=== PATIENT | female | born 1975 | race Caucasian/White ===

== ENCOUNTER 2020-04-09 05:45 | Emergency (ER) | payer BC ==
[2020-04-09 06:04] VITALS: BP 160/107; PULSE 77; RESP 18; TEMP 99
--- NOTE | 2020-04-09 06:22 | ED ---
Skin/Abscess/FB HPI - General Chief complaint: Skin/Abscess/Foreign Body Stated complaint: abscess Time Seen by Provider: 04/09/20 06:07 Source: patient, RN notes reviewed Mode of arrival: ambulatory Limitations: no limitations - History of Present Illness Initial comments: 44-year-old female presents emergency Department chief complaint of abscess on her tailbone region. Patient states it started last surgery was seen [facility] Tuesday was started on Bactrim. Patient states that the drainage started today in which it ruptured (. She states the pain is now resolved. Patient states that she had no fevers or chills. She states that there is a large amount of continuous drainage. - Related Data Previous Rx's Medication Instructions Recorded Cephalexin [Keflex] 500 mg PO Q6HR #28 cap 04/09/20 Allergies Allergy/AdvReac Type Severity Reaction Status Date / Time No Known Allergies Allergy Verified 04/09/20 06:04 Review of Systems ROS Statement: Those systems with pertinent positive or pertinent negative responses have been documented in the HPI. ROS Other: All systems not noted in ROS Statement are negative. Past Medical History Past Medical History: Hypertension History of Any Multi-Drug Resistant Organisms: None Reported Past Surgical History: Orthopedic Surgery Past Psychological History: Anxiety, Depression Smoking Status: Never smoker Past Alcohol Use History: None Reported Past Drug Use History: None Reported General Exam Limitations: no limitations General appearance: alert, in no apparent distress Head exam: Present: atraumatic, normocephalic, normal inspection Respiratory exam: Present: normal lung sounds bilaterally. Absent: respiratory distress, wheezes, rales, rhonchi, stridor Cardiovascular Exam: Present: regular rate, normal rhythm, normal heart sounds. Absent: systolic murmur, diastolic murmur, rubs, gallop, clicks GI/Abdominal exam: Present: soft, normal bowel sounds. Absent: distended, tenderness, guarding, rebound, rigid Skin exam: Present: warm, dry, intact, normal color, other (There is a open, large purulent drainage abscess at the cleft of buttocks, area is minimally tender). Absent: rash Course Vital Signs 04/09/20 06:02 Temperature 99 F Pulse Rate 77 Respiratory 18 Rate Blood Pressure 160/107 O2 Sat by Pulse 97 Oximetry Medical Decision Making - Medical Decision Making Patient will continue antibiotics , encouraged to do frequent warm soaks. Patient has appointment tomorrow with her PCP and return parameters were discussed. Disposition Clinical Impression: Pilonidal cyst with abscess Disposition: HOME SELF-CARE Condition: Stable Instructions (If sedation given, give patient instructions): Abscess (ED) Additional Instructions: Please return to the Emergency Department if symptoms worsen or any other concerns. Prescriptions: Cephalexin [Keflex] 500 mg PO Q6HR #28 cap Is patient prescribed a controlled substance at d/c from ED?: No Referrals: Reg Freitas MD [Primary Care Provider] - 1-2 days Time of Disposition: 06:21
== END 2020-04-09 06:36 | disposition home or self-care (01) ==
LOC: EC 05:45
DX: L05.01 Pilonidal cyst with abscess (principal); I10 Essential (primary) hypertension
CPT/HCPCS: 99283

== ENCOUNTER → 2020-12-18 | Outpatient (CLI) | payer BC ==
--- NOTE | 2020-12-18 21:06 | CONS ---
CONSULTATION DATE OF SERVICE: 12/18/2020 25-year-old lady has been evaluated in the sleep center for possible obstructive sleep apnea-hypopnea syndrome and significant excessive daytime sleepiness. HISTORY OF PRESENT ILLNESS/SLEEP-WAKE EVALUATION: Patient's usual sleep schedule on weekdays from 9 or 10 p.m. until 4:30 a.m., on weekends from 11 p.m. until 11:00 a.m. No problems with falling asleep, although she has TV set in bedroom. She sleeps on the side position usually. She snores and wakes up from sleep 2 times with 2 episodes of nocturia. Positive history of snoring and awakenings with episodes of choking. In the morning, the patient wakes up tired, falling asleep during the day. Has problems with managing, namely irritability. [place] Sleepiness Scale significantly increased to 17. The patient takes at least 2 periods of naps during the day. No history of vivid dreams during naps and no history of hypnagogic hallucinations, sleep paralysis or cataplexy. PAST MEDICAL HISTORY: Positive for depression, hypertension, sinus problems, acid reflux. PAST SURGICAL HISTORY: Bilateral surgery for carpal tunnel syndrome. MEDICATIONS: Sertraline, bisoprolol. SOCIAL HISTORY: Negative for smoking or using alcohol. FAMILY HISTORY: Hypertension. REVIEW OF SYSTEMS: Awakenings from sleep, sleepiness during the day. PHYSICAL EXAMINATION: lady without distress BP 164/109. Patient did not take her medications for the blood pressure today, HR 83, RR 15, height 5 feet 3 inches, weight 240.8, body mass index 42.5, temperature 97, oxygen saturation at room air 97%. Oropharynx, extremely low position of soft palate. Mallampati IV. NECK: Wide, 16-1/2 inches in circumference. HEENT: PERRLA, EOMI, evaluation of oropharynx showed tongue protrudes midline. NECK: Supple, no JVD. Thyroid is not palpable. LUNGS: Clear to percussion and to auscultation. Good air exchange. No wheezing or rhonchi. HEART: S1, S2 regular. No murmurs, gallops, or rubs. ABDOMEN: Soft and nontender. Bowel sounds are present. No organomegaly appreciated. EXTREMITIES: No clubbing or cyanosis. MICA SPREADER: Awake, alert, and oriented X3. Cranial nerves 2 to 7 intact. There is no fasciculation or atrophy. noted. No focal deficits observed. IMPRESSION: 1. Snoring, awakenings from sleep with choking and nocturia, extremely low position of the soft palate, Mallampati 4, wide neck 16 1/2 inches in circumference, sleepiness, obstructive sleep apnea-hypopnea syndrome. 2. Significant excessive daytime sleepiness. Patient take 2 naps a day. [place] Sleepiness Scale is very high range of 17. Dictate necessity to include hypersomnia index and narcolepsy in differential diagnosis. No history of cataplexy. 3. Hypertension. 4. Depression. 5. Obesity. BMI 42.5. 6. Sinus problems. 7. Acid reflux. 8. Status post bilateral surgery for carpal tunnel syndrome. PLAN: 1. Home sleep apnea test for evaluation of patient's breathing during sleep. 2. CPAP/BiPAP titration if sleep study confirms obstructive sleep apnea-hypopnea syndrome. 3. Preferable position during sleep on the side. 4. No driving if patient feels any sleepiness. 5. I will see patient for follow up visit to explain results of testing and following plan. Thank you very much for referring this patient for consultation. Sincerely, Brian Duke MD, PhD, FAASM Diplomat of [employer] Sleep Medicine [employer] Biomedical Technician of [facility] [place] MMODL / MARIBELLN: [id number] /
== END ==
LOC: SLEEP 16:17
PROVIDERS: ATTEND Internal Medicine
DX: G47.33 Obstructive sleep apnea (adult) (pediatric) (principal); I10 Essential (primary) hypertension; F32.9 Major depressive disorder, single episode, unspecified; E66.9 Obesity, unspecified; J34.9 Unspecified disorder of nose and nasal sinuses; K21.9 Gastro-esophageal reflux disease without esophagitis; Z98.890 Other specified postprocedural states; Z68.41 Body mass index [BMI] 40.0-44.9, adult
CPT/HCPCS: 99211

== ENCOUNTER 2021-04-12 14:38 | Emergency (ER) | payer BC ==
[2021-04-12 14:56] VITALS: TEMP 99
[2021-04-12] MEDS ORDERED: LIDOCAINE 1% INJ 10MG/ML (20 ML MDV) SQ ONE (17:19)
[2021-04-12] MEDS ORDERED: LIDOCAINE-PRILOCAINE 2.5-2.5% CREAM 5 GM TUBE TOPICAL STA (17:19)
[2021-04-12] MEDS ORDERED: DIPH,PERTUS(ACELL)TETVAC-LF 0.5 ML VIAL IM ONE (17:20)
--- NOTE | 2021-04-12 17:27 | ED ---
General Adult HPI - General Chief complaint: Skin/Abscess/Foreign Body Stated complaint: LT LEG SWELLING Time Seen by Provider: 04/12/21 17:15 Source: patient, RN notes reviewed Mode of arrival: ambulatory Limitations: no limitations - History of Present Illness Initial comments: 45-year-old female, alert and oriented 4, presents to the emergency room with complaints of a left inner leg abscess and redness since . Patient states that she was seen at urgent care yesterday and they prescribed her Bactrim and Naprosyn. She states that she has had 2 doses and redness is continuing to spread and becoming more painful and swollen. Patient states she has a history of hypertension. She is a nonsmoker. She has had a low-grade fever in the emergency room. She denies any nausea vomiting or diarrhea. -: days(s) (4) Location: buttocks, left Severity scale (1-10): 7 Quality: sharp Consistency: constant Improves with: none Worsens with: none Associated Symptoms: denies other symptoms Treatments Prior to Arrival: other (bactrim naproxen) - Related Data Home Medications Medication Instructions Recorded Confirmed Bisoprolol-Hctz 10-6.25 mg [Ziac 1 tab PO DAILY 04/12/21 04/12/21 10-6.25 MG] Ibuprofen [Advil] 400 mg PO DAILY PRN 04/12/21 04/12/21 Phenylephrine HCl/Acetaminophn 2 tab PO DAILY PRN 04/12/21 04/12/21 [Tylenol Sinus Headache Caplet] Sertraline [Zoloft] 50 mg PO DAILY 04/12/21 04/12/21 Sulfamethox-Tmp 800-160Mg [Bactrim 1 tab PO Q12H 04/12/21 04/12/21 DS 800-160 mg] Allergies Allergy/AdvReac Type Severity Reaction Status Date / Time No Known Allergies Allergy Verified 04/12/21 18:02 Review of Systems ROS Statement: Those systems with pertinent positive or pertinent negative responses have been documented in the HPI. ROS Other: All systems not noted in ROS Statement are negative. Past Medical History Past Medical History: Hypertension History of Any Multi-Drug Resistant Organisms: None Reported Past Surgical History: Orthopedic Surgery Past Psychological History: Anxiety, Depression Smoking Status: Never smoker Past Alcohol Use History: None Reported Past Drug Use History: None Reported General Exam Limitations: no limitations General appearance: alert, in no apparent distress Head exam: Present: atraumatic, normocephalic, normal inspection Eye exam: Present: normal appearance, EOMI. Absent: scleral icterus, conjunctival injection, periorbital swelling Neck exam: Present: normal inspection, full ROM. Absent: tenderness, meningismus Respiratory exam: Present: normal lung sounds bilaterally. Absent: respiratory distress, wheezes, rales, rhonchi, stridor, chest wall tenderness, accessory muscle use, decreased breath sounds Cardiovascular Exam: Present: normal rhythm, tachycardia, normal heart sounds. Absent: systolic murmur, diastolic murmur, rubs, gallop, clicks GI/Abdominal exam: Present: soft Extremities exam: Present: normal inspection, full ROM, normal capillary refill. Absent: tenderness, pedal edema, joint swelling, calf tenderness Back exam: Present: normal inspection, full ROM. Absent: tenderness, CVA tenderness (R), CVA tenderness (L), rash noted Neurological exam: Present: alert, oriented X3 Psychiatric exam: Present: normal affect, normal mood Skin exam: Present: warm, dry, erythema (Left inner thigh area of induration approximately 10cm x 18cm) Course Vital Signs 04/12/21 04/12/21 14:54 18:59 Temperature 99 F Pulse Rate 100 99 Respiratory 16 18 Rate Blood Pressure 135/70 124/83 O2 Sat by Pulse 97 99 Oximetry - Reevaluation(s) Reevaluation #1: 04/12/21 17:41 Patient was offered a [place] for pain and declined at this time. Time: 17:41 Procedures - Incision & Drainage Consent Obtained: verbal consent Site: lower extremity (inner thigh) Anesthetic Used: lidocaine 1% Amount (mLs): 3 I&D Cleaning Method: Chloroprep Sterile Field Used?: Yes Scalpel Used: #11 Needle Aspiration Performed?: No Irrigation Performed?: No I&D Drainage Obtained: Pus, Blood Culture Obtained?: Yes Patient Tolerated Procedure: well Medical Decision Making - Medical Decision Making 44-year-old female patient presents to the emergency room with complaints of left inner thigh abscess. Patient was seen at urgent care yesterday and put on Bactrim. She has not had any fevers, nausea vomiting or diarrhea. The abscess was indurated with an area of redness 10 cm x 18 cm. The abscess was lanced in the emergency room today. There was purulent drainage and a culture was sent. She was directed to use sitz baths and continue Bactrim as previously prescribed. Follow-up with her primary care doctor tomorrow. Patient was also directed to return to the emergency room with a new worsening symptoms including increased pain, fevers, nausea vomiting. She is agreeable to this plan of care. Case was discussed with Dr. Yates. Disposition Clinical Impression: Cellulitis, Abscess Disposition: HOME SELF-CARE Condition: Good Instructions (If sedation given, give patient instructions): Cellulitis (ED), Sitz Bath (DC), Abscess Incision and Drainage (DC) Additional Instructions: Continue taking the antibiotics and the Naprosyn as previously prescribed. Take sitz baths as directed. Follow-up with the primary care doctor next week. Return to the emergency room with any new or worsening symptoms including increased redness, pain or fevers. Is patient prescribed a controlled substance at d/c from ED?: No Referrals: Reg Freitas MD [Primary Care Provider] - 1-2 days
[2021-04-12 19:00] VITALS: BP 124/83; PULSE 99; RESP 18
== END 2021-04-12 19:03 | disposition home or self-care (01) ==
LOC: EC 14:38
DX: L02.416 Cutaneous abscess of left lower limb (principal); I10 Essential (primary) hypertension; F41.9 Anxiety disorder, unspecified; F32.A Depression, unspecified
CPT/HCPCS: 99283; 90471; 10060; 87070; 87205; 87077; 87186; 90715; J2001

== ENCOUNTER 2022-04-09 10:40 | Emergency (ER) | payer BC ==
[2022-04-09 10:51] VITALS: BP 156/75; PULSE 58; RESP 18; TEMP 97.7
--- NOTE | 2022-04-09 11:37 | ED ---
Skin/Abscess/FB HPI - General Chief complaint: Skin/Abscess/Foreign Body Stated complaint: absess Time Seen by Provider: 04/09/22 11:19 Source: patient, RN notes reviewed Mode of arrival: ambulatory - History of Present Illness Initial comments: Patient is a pleasant 46-year-old female presenting to the emergency room with complaints of a pimple-like lesion to the right upper inner thigh. She reports that the lesion just appear a few days ago however around this time last year she had developed a similar lesion which required hospitalization for MRSA and she wishes "to stay on top of" this lesion. She states that the area has become more irritated recently but she denies any drainage from the lesion any increase in redness, fevers or chills. She denies any other complaints or concerns at this time. She has a past medical history for hypertension. - Related Data Home Medications Medication Instructions Recorded Confirmed Bisoprolol-Hctz 10-6.25 mg [Ziac 1 tab PO DAILY 04/12/21 04/12/21 10-6.25 MG] Ibuprofen [Advil] 400 mg PO DAILY PRN 04/12/21 04/12/21 Phenylephrine HCl/Acetaminophn 2 tab PO DAILY PRN 04/12/21 04/12/21 [Tylenol Sinus Headache Caplet] Sertraline [Zoloft] 50 mg PO DAILY 04/12/21 04/12/21 Sulfamethox-Tmp 800-160Mg [Bactrim 1 tab PO Q12H 04/12/21 04/12/21 DS 800-160 mg] Previous Rx's Medication Instructions Recorded clindamycin HCL [Cleocin] 300 mg PO Q8H 10 Days #30 cap 04/09/22 Allergies Allergy/AdvReac Type Severity Reaction Status Date / Time No Known Allergies Allergy Verified 04/09/22 10:51 Review of Systems ROS Statement: Those systems with pertinent positive or pertinent negative responses have been documented in the HPI. ROS Other: All systems not noted in ROS Statement are negative. Past Medical History Past Medical History: Hypertension History of Any Multi-Drug Resistant Organisms: MRSA Date of last positivie culture/infection: 04/12/21 MDRO Source:: THIGH MRSA Past Surgical History: Orthopedic Surgery Past Psychological History: Anxiety, Depression Smoking Status: Never smoker Past Alcohol Use History: None Reported Past Drug Use History: None Reported General Exam General appearance: alert, in no apparent distress Head exam: Present: atraumatic, normocephalic, normal inspection Eye exam: Present: normal appearance, PERRL, EOMI. Absent: scleral icterus, conjunctival injection, periorbital swelling ENT exam: Present: normal exam, mucous membranes moist Neck exam: Present: normal inspection. Absent: tenderness, lymphadenopathy Respiratory exam: Present: normal lung sounds bilaterally. Absent: respiratory distress, wheezes, rales, rhonchi, stridor Cardiovascular Exam: Present: regular rate, normal rhythm, normal heart sounds. Absent: systolic murmur, diastolic murmur, rubs, gallop, clicks GI/Abdominal exam: Present: soft, normal bowel sounds. Absent: distended, tenderness, guarding, rebound, rigid Rectal exam: Present: deferred Extremities exam: Present: normal inspection. Absent: pedal edema, joint swelling Back exam: Present: normal inspection, full ROM Neurological exam: Present: alert, oriented X3, CN II-XII intact Psychiatric exam: Present: normal affect, normal mood Skin exam: Present: other (Right inner thighdistal to groin fold discolored skin lesion with tenderness no focal abscess noted no surrounding induration and no drainage. ) Course Vital Signs 04/09/22 10:47 Temperature 97.7 F Pulse Rate 58 L Respiratory 18 Rate Blood Pressure 156/75 O2 Sat by Pulse 100 Oximetry Medical Decision Making - Medical Decision Making 46-year-old female presenting to the emergency room with concerns regarding pimple-like skin lesion with a history of MRSA. Exam reveals tissue discoloration and tenderness without induration or discernible abscess. No drainage. Hemodynamically stable without any evidence of systemic infection. No indication for diagnostic imaging or laboratory studies. No indication for incision and drainage as there is no evidence of abscess or significant cellulitis on exam. No indication for IV antibiotics, analgesics, or an tipyretics. Suspect early infection consequently will treat with oral clindamycin regimen in the setting of previous MRSA history. Strict return parameters regarding worsening of infection reviewed with patient. Will discharge home in stable condition. Case discussed with Dr. Cornejo. Disposition Clinical Impression: Dermatitis, Personal history of Methicillin resistant Staphylococcus aureus infection Disposition: HOME SELF-CARE Condition: Stable Instructions (If sedation given, give patient instructions): Abscess (ED), Dermatitis (ED) Additional Instructions: Complete course of antibiotic as prescribed. Please monitor for symptoms of abscess and worsening infection. Please follow-up with your primary care provider. Please return to the Emergency Department if symptoms worsen or any other concerns. Prescriptions: clindamycin HCL [Cleocin] 300 mg PO Q8H 10 Days #30 cap Is patient prescribed a controlled substance at d/c from ED?: No Referrals: Reg Freitas MD [Primary Care Provider] - 1-2 days Time of Disposition: 11:41
== END 2022-04-09 12:10 | disposition home or self-care (01) ==
LOC: EC 10:40
DX: L30.9 Dermatitis, unspecified (principal); Z86.14 Personal history of Methicillin resistant Staphylococcus aureus infection; I10 Essential (primary) hypertension; F41.9 Anxiety disorder, unspecified; F32.A Depression, unspecified; Z79.899 Other long term (current) drug therapy
CPT/HCPCS: 99282

== ENCOUNTER 2023-10-21 08:15 | Observation (INO) | payer BC ==
[2023-10-21 09:08] LABS: HCT 48.5 % (34.0-46.0); HGB 16.5 gm/dL (11.4-16.0); MCH 31.1 pg (25.0-35.0); MCHC 34.1 g/dL (31.0-37.0); MCV 91.1 fL (80.0-100.0); Mean Platelet Volume 7.3; Platelet Count 251 k/uL (150-450); RBC 5.32 m/uL (3.80-5.40); RDW 13.1 % (11.5-15.5); WBC 17.6 k/uL (3.8-10.6)
[2023-10-21] MEDS: SODIUM CHLORIDE 0.9% 1,000 ML IV STA ×2 (09:10→12:56)
[2023-10-21 09:30] LABS: ALT 42 U/L (4-34); African American GFR (CKD) 84 (>60 ml/min/1.73 sqM); Albumin 4.2 g/dL (3.5-5.0); Amylase 49 U/L (30-110); Anion Gap 10 mmol/L; Blood Urea Nitrogen 18 mg/dL (7-17); Calcium 9.4 mg/dL (8.4-10.2); Carbon Dioxide 12 mmol/L (22-30); Chloride 119 mmol/L (98-107); Glucose 90 mg/dL (74-99); Lipase 86 U/L (23-300); Non-African American GFR(CKD) 73 (>60 ml/min/1.73 sqM); Sodium 141 mmol/L (137-145); Total Bilirubin 0.8 mg/dL (0.2-1.3); Total Protein 7.5 g/dL (6.3-8.2)
[2023-10-21] MEDS: LOPERAMIDE 2 MG CAP PO STA (09:40)
--- NOTE | 2023-10-21 09:46 | ED ---
Nausea/Vomiting/Diarrhea HPI - General Chief complaint: Nausea/Vomiting/Diarrhea Stated complaint: Stomach pain, diarrhea Time Seen by Provider: 10/21/23 09:44 Source: patient, RN notes reviewed Mode of arrival: ambulatory Limitations: no limitations - History of Present Illness Initial comments: 48-year-old female presented to the ER with a chief complaint of diarrhea. She reports her diarrhea started on 10-15-2023. She states that has been persistent and she also is endorsing associated lower abdominal discomfort. She reports she is unable to twist or move without feeling like she is going to have an accident. She has tried Pepto-Bismol without relief. She denies any hematochezia or urinary complaints. She does report she has been having a decreased urine output. Denies any nausea, vomiting, chest pain, shortness of breath, fevers, chills, night sweats. - Related Data Home Medications Medication Instructions Recorded Confirmed Bisoprolol-Hctz 10-6.25 mg [Ziac 1 tab PO DAILY 04/12/21 10/21/23 10-6.25 MG] Venlafaxine HCl ER [Effexor Xr] 75 mg PO DAILY 10/21/23 10/21/23 Allergies Allergy/AdvReac Type Severity Reaction Status Date / Time No Known Allergies Allergy Verified 10/21/23 09:44 Review of Systems ROS Statement: Those systems with pertinent positive or pertinent negative responses have been documented in the HPI. ROS Other: All systems not noted in ROS Statement are negative. Past Medical History Past Medical History: Hypertension History of Any Multi-Drug Resistant Organisms: MRSA Date of last positivie culture/infection: 04/12/21 MDRO Source:: THIGH MRSA Past Surgical History: Orthopedic Surgery Past Psychological History: Anxiety, Depression Smoking Status: Never smoker Past Alcohol Use History: None Reported Past Drug Use History: None Reported General Exam Limitations: no limitations General appearance: alert, in no apparent distress Respiratory exam: Present: normal lung sounds bilaterally. Absent: respiratory distress, wheezes, rales, rhonchi, stridor Cardiovascular Exam: Present: regular rate, normal rhythm, normal heart sounds. Absent: systolic murmur, diastolic murmur, rubs, gallop, clicks GI/Abdominal exam: Present: soft, tenderness (Generalized), normal bowel sounds Neurological exam: Present: alert, oriented X3, CN II-XII intact Skin exam: Present: warm, dry, intact, normal color. Absent: rash Course Vital Signs 10/21/23 08:28 Temperature 98 F Pulse Rate 79 Respiratory 18 Rate Blood Pressure 139/89 O2 Sat by Pulse 98 Oximetry - Reevaluation(s) Reevaluation #1: 10/21/23 13:[address] Freitas who accepts medical admission. Medical Decision Making - Medical Decision Making Was pt. sent in by a medical professional or institution (, PA, CUTTING AND PRINTING MACHINE OPERATOR, urgent care, hospital, or longterm...) When possible be specific @ -No Did you speak to anyone other than the patient for history (EMS, parent, family, police, friend...)? What history was obtained from this source @ -No Did you review nursing and triage notes (agree or disagree)? Why? @ -I reviewed and agree with nursing and triage notes Were old charts reviewed (outside hosp., previous admission, EMS record, old EKG, old radiological studies, urgent care reports/EKG's, longterm records)? Report findings @ -No old charts were reviewed Differential Diagnosis (chest pain, altered mental status, abdominal pain women, abdominal pain men, vaginal bleeding, weakness, fever, dyspnea, syncope, headache, dizziness, GI bleed, back pain, seizure, CVA, palpatations, mental health, musculoskeletal)? @ -Differential Abdominal Pain Women:appendicitis, Cholecystitis, dive rticulosis, ischemic bowel, pancreatitis, hepatitis, UTI, gastroenteritis, AAA, incarcerated hernia, bowel obstruction, constipation, inflammatory bowel, hepatitis, peptic ulcer disease, splenic infarction, perforated viscus, vulvitis, ovarian torsion, PID, kidney stone, placenta abruption, this is not meant to be an all-inclusive list] EKG interpreted by me (3pts min.). @ -None X-rays interpreted by me (1pt min.). @ -None done CT interpreted by me (1pt min.). @ -CT abdomen pelvis significant for scattered prominent fluid-filled small bowel loops throughout the mid and lower abdomen along with liquid stool throughout the colon. Scattered mesenteric lymph nodes enlarged up to 11 mm. Normal appendix. Cholelithiasis. No evidence of acute cholecystitis. Hepatomegaly at 21.6 cm with severe hepatic steatosis. Patchy focal atelectasis versus early pneumonia. U/S interpreted by me (1pt. min.). @ -None done What testing was considered but not performed or refused? (CT, X-rays, U/S, la bs)? Why? @ -None What meds were considered but not given or refused? Why? @ -None Did you discuss the management of the patient with other professionals (professionals i.e. , PA, CUTTING AND PRINTING MACHINE OPERATOR, lab, RT, psych nurse, social science professor, sewer pipe layer, teacher, textile technical officer, housing case manager)? Give summary @ -Yes, case discussed with Dr. Freitas who accepts medical admission. Was smoking cessation discussed for >3mins.? @ -No Was critical care preformed (if so, how long)? @ -No Were there social determinants of health that impacted care today? How? (Homelessness, low income, unemployed, alcoholism, drug addiction, transportation, low edu. Level, literacy, decrease access to med. care, retirement, rehab)? @ -No Was there de-escalation of care discussed even if they declined (Discuss DNR or withdrawal of care, Hospice)? DNR status @ -No What co-morbidities impacted this encounter? (DM, HTN, Smoking, COPD, CAD, Cancer, CVA, ARF, Chemo, Hep., AIDS, mental health diagnosis, sleep apnea, morbid obesity)? @ -None Was patient admitted / discharged? Hospital course, mention meds given and route, prescriptions, significant lab abnormalities, going to OR and other pertinent info. @ -Admitted. 48 year old female presenting to the ER with a chief complaint of abdominal pain and diarrhea. History and physical exam completed. Vitals stable. Patient in no signs of acute distress and nontoxic appearing. Exam significant for generalized abdominal tenderness with hyperactive bowel sounds. Laboratory s tudies obtained significant for your WBC 17.6 with a left shift. Potassium 3.4, carbon dioxide 12, AST 42, ALT 42 (sample slightly hemolyzed). Urinalysis infectious with large leukocyte esterases with greater than 182 white blood cells. Urine sent for culture. CT abdomen pelvis performed due to leukocytosis and exam findings. CT abdomen pelvis significant for findings consistent with generalized enteritis. Normal appendix. Cholelithiasis no evidence of acute cholecystitis. Hepatomegaly at 21.6 cm with severe hepatic steatosis. Patchy focal atelectasis versus early pneumonia. Admission considered due leukocytosis, UTI and CT findings. Case discussed with Dr. Freitas, who accepts medical admission. Blood cultures obtained. Patient started on IV rocephin. Results discussed with nicholasnet, all questions answered. Patient agreeable for admission. Case discussed with ED attending, Dr. Lang. Undiagnosed new problem with uncertain prognosis? @ -No Drug Therapy requiring intensive monitoring for toxicity (Heparin, Nitro, Insulin, Cardizem)? @ -No Were any procedures done? @ -No Diagnosis/symptom? @ -UTI/leukocytosis/enteritis Acute, or Chronic, or Acute on Chronic? @ -Acute Uncomplicated (without systemic symptoms) or Complicated (systemic symptoms)? @ -Complicated Side effects of treatment? @ -No Exacerbation, Progression, or Severe Exacerbation? @ -No Poses a threat to life or bodily function? How? (Chest pain, USA, VT, pneumonia, PE, COPD, DKA, ARF, appy, cholecystitis, CVA, Diverticulitis, Homicidal, Suicidal, threat to staff... and all critical care pts) @ -Low likelihood - Lab Data Result diagrams: 10/21/23 09:04 10/21/23 09:04 Lab Results 10/21/23 10/21/23 10/21/23 Range/Units 08:45 09:04 09:04 WBC 17.6 H (3.8-10.6) k/uL RBC 5.32 (3.80-5.40) m/uL Hgb 16.5 H (11.4-16.0) gm/dL Hct 48.5 H (34.0-46.0) % MCV 91.1 (80.0-100.0) fL MCH 31.1 (25.0-35.0) pg MCHC 34.1 (31.0-37.0) g/dL RDW 13.1 (11.5-15.5) % Plt Count 251 (150-450) k/uL MPV 7.3 Neutrophils % (Manual) 73 % Lymphocytes % (Manual) 14 % Eosinophils % (Manual) 13 % Neutrophils # (Manual) 12.85 H (1.3-7.7) k/uL Lymphocytes # (Manual) 2.46 (1.0-4.8) k/uL Eosinophils # (Manual) 2.29 H (0-0.7) k/uL Nucleated RBCs 0 (0-0) /100 WBC Manual Slide Review Performed RBC Morphology Normal Sodium 141 (137-145) mmol/L Potassium 3.4 L (3.5-5.1) mmol/L Chloride 119 H (98-107) mmol/L Carbon Dioxide 12 L (22-30) mmol/L Anion Gap 10 mmol/L BUN 18 H (7-17) mg/dL Creatinine 0.95 (0.52-1.04) mg/dL Est GFR (CKD-EPI)AfAm 84 (>60 ml/min/1.73 sqM) Est GFR (CKD-EPI)NonAf 73 (>60 ml/min/1.73 sqM) Glucose 90 (74-99) mg/dL Plasma Lactic Acid Trev (0.7-2.0) mmol/L Calcium 9.4 (8.4-10.2) mg/dL Total Bilirubin 0.8 (0.2-1.3) mg/dL AST 42 H (14-36) U/L ALT 42 H (4-34) U/L Alkaline Phosphatase 81 (38-126) U/L Total Protein 7.5 (6.3-8.2) g/dL Albumin 4.2 (3.5-5.0) g/dL Amylase 49 (30-110) U/L Lipase 86 (23-300) U/L Urine Color Light Yellow Urine Appearance Turbid H (Clear) Urine pH 5.5 (5.0-8.0) Ur Specific [place] 1.022 (1.001-1.035) Urine Protein 1+ H (Negative) Urine Glucose (UA) Negative (Negative) Urine Ketones Negative (Negative) Urine Blood Small H (Negative) Urine Nitrite Negative (Negative) Urine Bilirubin Negative (Negative) Urine Urobilinogen <2.0 (<2.0) mg/dL Ur Leukocyte Esterase Large H (Negative) Urine RBC >182 H (0-5) /hpf Urine WBC >182 H (0-5) /hpf Ur Squamous Epith Cells 10 H (0-4) /hpf Urine Bacteria Few H (None) /hpf Urine Mucus Occasional H (None) /hpf 10/21/23 Range/Units 09:04 WBC (3.8-10.6) k/uL RBC (3.80-5.40) m/uL Hgb (11.4-16.0) gm/dL Hct (34.0-46.0) % MCV (80.0-100.0) fL MCH (25.0-35.0) pg MCHC (31.0-37.0) g/dL RDW (11.5-15.5) % Plt Count (150-450) k/uL MPV Neutrophils % (Manual) % Lymphocytes % (Manual) % Eosinophils % (Manual) % Neutrophils # (Manual) (1.3-7.7) k/uL Lymphocytes # (Manual) (1.0-4.8) k/uL Eosinophils # (Manual) (0-0.7) k/uL Nucleated RBCs (0-0) /100 WBC Manual Slide Review RBC Morphology Sodium (137-145) mmol/L Potassium (3.5-5.1) mmol/L Chloride (98-107) mmol/L Carbon Dioxide (22-30) mmol/L Anion Gap mmol/L BUN (7-17) mg/dL Creatinine (0.52-1.04) mg/dL Est GFR (CKD-EPI)AfAm (>60 ml/min/1.73 sqM) Est GFR (CKD-EPI)NonAf (>60 ml/min/1.73 sqM) Glucose (74-99) mg/dL Plasma Lactic Acid Trev 0.7 (0.7-2.0) mmol/L Calcium (8.4-10.2) mg/dL Total Bilirubin (0.2-1.3) mg/dL AST (14-36) U/L ALT (4-34) U/L Alkaline Phosphatase (38-126) U/L Total Protein (6.3-8.2) g/dL Albumin (3.5-5.0) g/dL Amylase (30-110) U/L Lipase (23-300) U/L Urine Color Urine Appearance (Clear) Urine pH (5.0-8.0) Ur Specific Prospect (1.001-1.035) Urine Protein (Negative) Urine Glucose (UA) (Negative) Urine Ketones (Negative) Urine Blood (Negative) Urine Nitrite (Negative) Urine Bilirubin (Negative) Urine Urobilinogen (<2.0) mg/dL Ur Leukocyte Esterase (Negative) Urine RBC (0-5) /hpf Urine WBC (0-5) /hpf Ur Squamous Epith Cells (0-4) /hpf Urine Bacteria (None) /hpf Urine Mucus (None) /hpf - Radiology Data Radiology results: report reviewed, image reviewed Disposition Clinical Impression: UTI (urinary tract infection), Enteritis, Leukocytosis Disposition: ADMITTED IP TO THIS HOSP Condition: Stable Time of Disposition: 13:17
[2023-10-21 09:52] LABS: AST 42 U/L (14-36); Alkaline Phosphatase 81 U/L (38-126); Potassium 3.4 mmol/L (3.5-5.1)
[2023-10-21 10:41] LABS: Eosinophils # (M) 2.29 k/uL (0-0.7); Lymphocytes # (M) 2.46 k/uL (1.0-4.8); Neutrophils # (M) 12.85 k/uL (1.3-7.7); Neutrophils % (M) 73 %; Nucleated Red Blood Cells 0 /100 WBC (0-0); RBC Morphology Normal; Total Cells Counted 100
--- NOTE | 2023-10-21 11:34 | CT ---
EXAMINATION TYPE: CT abdomen pelvis w con DATE OF EXAM: 10/21/2023 COMPARISON: NONE HISTORY: 48-year-old female RLQ abdominal pain with diarrhea TECHNIQUE: Contiguous axial scanning of the abdomen and pelvis following administration of 100 ml Iso wandy 300 IV contrast. Delayed images through the kidneys and coronal/sagittal reconstructions perform ed. CT DLP: 1696.2 mGycm Automated exposure control for dose reduction was used. FINDINGS: Normal size without pericardial effusion. Some mild patchy density at the left base, axial image 3. No pleural effusion. Diffuse low-attenuation of the hepatic parenchyma with hepatomegaly up to 21.6 cm. Portal venous syst em is patent. No biliary ductal dilatation. Gallbladder is mildly hydropic at 4.6 cm wide with small layering gallstones measuring up to 9 mm. Adrenal glands, kidneys, spleen with anterior hilar splenule, and pancreas show no gross abnormal. No dilated small bowel, free fluid, or free air. However, scattered prominent fluid-filled small mario alberto l loops are present throughout the mid and lower abdomen with a few scattered prominent mesenteric ly mph nodes measuring up to 1.1 cm. There is additional liquid stool seen throughout the colon without pericolonic inflammatory change. Normal appendix noted. Bladder collapsed. Uterus anteverted. 2.1 cm dominant follicle or functional cyst of the left ovary. Right ovary also visualized. A few tiny pelvic phleboliths. No abnormal fluid collection in the pelvi s or pelvic lymphadenopathy. Bones: Facet arthropathy lower lumbar spine. IMPRESSION: 1. SCATTERED PROMINENT FLUID-FILLED SMALL BOWEL LOOPS THROUGHOUT THE MID AND LOWER ABDOMEN ALONG WITH LIQUID STOOL THROUGHOUT THE COLON. CORRELATE FOR A GENERALIZED ENTERITIS. A FEW SCATTERED MESENTERIC LYMPH NODES ARE MILDLY ENLARGED UP TO 11 MM, LIKELY REACTIVE. 2. NORMAL APPENDIX. 3. CHOLELITHIASIS. MILDLY HYDROPIC GALLBLADDER PROBABLY RELATES TO FASTING STATE. IF CONCERN FOR MESERET Y ACUTE CHOLECYSTITIS, HIDA SCAN CAN BE CONSIDERED. 4. HEPATOMEGALY AT 21.6 CM WITH SEVERE HEPATIC STEATOSIS. APPROPRIATE CLINICAL MANAGEMENT IS ADVISED. 5. SOME PATCHY FOCAL ATELECTASIS VERSUS EARLY PNEUMONIA LEFT BASE. CLINICALLY CORRELATE.
[2023-10-21 11:39] LABS: Appearance,Urine Turbid (Clear); Bacteria,Urine Few /hpf; Bilirubin,Urine Negative (Negative); Blood,Urine Small (Negative); Color,Urine Light Yellow; Glucose,Urine (UA) Negative (Negative); Ketones,Urine Negative (Negative); Leukocyte Esterase,Urine Large (Negative); Mucus,Urine Occasional /hpf; Nitrite,Urine Negative (Negative); PH, Urine 5.5 (5.0-8.0); Protein,Urine 1+ (Negative); RBC,Urine >182 /hpf (0-5); Specific Gravity,Urine 1.022 (1.001-1.035); Squamous Epithelial Cell,Urine 10 /hpf (0-4); Urobilinogen,Urine <2.0 mg/dL (<2.0); WBC,Urine >182 /hpf (0-5)
[2023-10-21] MEDS: DIPHENOX-ATROP 2.5-0.025 MG 1 EACH TAB PO STA (12:55)
[2023-10-21] MEDS ORDERED: NALOXONE 0.4 MG/ML 1 ML VIAL IV PRN (13:11)
[2023-10-21] MEDS ORDERED: IBUPROFEN 400 MG TAB PO PRN (13:11)
[2023-10-21] MEDS ORDERED: LOPERAMIDE 2 MG CAP PO PRN (13:16)
[2023-10-21] MEDS: cefTRIAXone IN SWFI 1,000 MG/10 ML SYRINGE IVP STA (14:57)
[2023-10-21] MEDS: SODIUM CHLORIDE 0.9% 1,000 ML IV SCH (14:58)
--- NOTE | 2023-10-21 16:54 | P.HPIM ---
History of Present Illness H&P Date: 10/21/23 Chief Complaint: Diarrhea nausea dysuria The patient is a 48-year-old female with underlying history of hypertension who last month had gastroenteritis which resolved. The patient is now having worsening symptoms with diffuse abdominal pain in the right upper quadrant. CT scan shows significant diffuse colitis with fatty liver and element of gallstones. Will ask surgery to see the patient. No significant chest pain she seems to be tolerating diet at this point. No history family history of colitis or Crohn's disease. She is a non-smoker. We spent a long time discussing dietary modifications and lifestyle improvement to lose weight. Review of Systems Constitutional: Denies chills, Denies fever Eyes: denies blurred vision, denies pain Ears, nose, mouth and throat: Denies headache, Denies sore throat Cardiovascular: Denies chest pain, Denies shortness of breath Respiratory: Denies cough Gastrointestinal: Reports as per HPI, Reports abdominal pain Genitourinary: Denies dysuria, Denies hematuria Past Medical History Past Medical History: Hypertension History of Any Multi-Drug Resistant Organisms: MRSA Date of last positivie culture/infection: 04/12/21 MDRO Source:: THIGH MRSA Past Surgical History: Orthopedic Surgery Past Psychological History: Anxiety, Depression Smoking Status: Never smoker Past Alcohol Use History: None Reported Past Drug Use History: None Reported Medications and Allergies Home Medications Medication Instructions Recorded Confirmed Type Bisoprolol-Hctz 10-6.25 mg [Ziac 1 tab PO DAILY 04/12/21 10/21/23 History 10-6.25 MG] Venlafaxine HCl ER [Effexor Xr] 75 mg PO DAILY 10/21/23 10/21/23 History Allergies Allergy/AdvReac Type Severity Reaction Status Date / Time No Known Allergies Allergy Verified 10/21/23 09:44 Physical Exam Vitals: Vital Signs Temp Pulse Resp BP Pulse Ox 10/21/23 14:30 67 16 163/107 99 10/21/23 08:28 98 F 79 18 139/89 98 Intake and Output 10/21/23 10/21/23 10/21/23 06:59 14:59 22:59 Other: Weight 104.78 kg - Constitutional General appearance: obese - EENT Eyes: EOMI - Neck Neck: no lymphadenopathy - Respiratory Respiratory: bilateral: CTA - Cardiovascular Rhythm: regular Heart sounds: normal: S1, S2 Abnormal Heart Sounds: no S3 Gallop - Gastrointestinal General gastrointestinal: tenderness Localized gastrointestinal: tender: diffuse - Integumentary Integumentary: no cellulitis - Psychiatric Psychiatric: A&O x's 3, appropriate affect Results CBC & Chem 7: 10/21/23 09:04 10/21/23 09:04 Labs: Abnormal Lab Results - Last 24 Hours (Table) 10/21/23 10/21/23 10/21/23 Range/Units 08:45 09:04 09:04 WBC 17.6 H (3.8-10.6) k/uL Hgb 16.5 H (11.4-16.0) gm/dL Hct 48.5 H (34.0-46.0) % Neutrophils # (Manual) 12.85 H (1.3-7.7) k/uL Eosinophils # (Manual) 2.29 H (0-0.7) k/uL Potassium 3.4 L (3.5-5.1) mmol/L Chloride 119 H (98-107) mmol/L Carbon Dioxide 12 L (22-30) mmol/L BUN 18 H (7-17) mg/dL AST 42 H (14-36) U/L ALT 42 H (4-34) U/L Urine Appearance Turbid H (Clear) Urine Protein 1+ H (Negative) Urine Blood Small H (Negative) Ur Leukocyte Esterase Large H (Negative) Urine RBC >182 H (0-5) /hpf Urine WBC >182 H (0-5) /hpf Ur Squamous Epith Cells 10 H (0-4) /hpf Urine Bacteria Few H (None) /hpf Urine Mucus Occasional H (None) /hpf Assessment and Plan (1) Accelerated hypertension Current Visit: Yes Status: Acute Code(s): I10 - ESSENTIAL (PRIMARY) HYPERTENSION SNOMED Code(s): 60312986 (2) Enteritis Current Visit: Yes Status: Acute Code(s): K52.9 - NONINFECTIVE GASTROENTERITIS AND COLITIS, UNSPECIFIED SNOMED Code(s): 11257614 (3) Leukocytosis Current Visit: Yes Status: Acute Code(s): D72.829 - ELEVATED WHITE BLOOD CELL COUNT, UNSPECIFIED SNOMED Code(s): 121746701 (4) UTI (urinary tract infection) Current Visit: Yes Status: Acute Code(s): N39.0 - URINARY TRACT INFECTION, SITE NOT SPECIFIED SNOMED Code(s): 93355713 Plan: Will go ahead and give empiric Cipro for antibiotic treatment for UTI and enteritis. Reconcile home medications. She is a full code. Check CBC and CMP in AM. Gallstones with hepatic steatosis. Asked general surgery to evaluate the patient for colitis and history of right upper quadrant pain. Question need for HIDA scan. [facility] will be covering for the weekend. See orders otherwise. Anticipate discharge in next 24-48 hours Time with Patient: Greater than 30
[2023-10-21] MEDS: CIPROFLOXACIN HCL 500 MG TAB PO SCH (20:52)
[2023-10-21] MEDS: hydrALAZINE HCL 20 MG/ML 1 ML VIAL IVP SCH (22:51)
[2023-10-22 09:37] LABS: ALT 40 U/L (8-44); AST 31 U/L (13-35); Albumin 3.5 g/dL (3.8-4.9); Alkaline Phosphatase 73 U/L (41-126); BUN/Creat Ratio 16.75 Ratio (12.00-20.00); Blood Urea Nitrogen 13.4 mg/dL (9.0-27.0); Calcium 8.6 mg/dL (8.7-10.3); Chloride 112 mmol/L (96-109); Globulin 2.5 g/dL (1.6-3.3); Glucose 88 mg/dL (70-110); Sodium 140 mmol/L (135-145); Total Bilirubin 0.5 mg/dL (0.3-1.2)
[2023-10-22 10:23] LABS: Basophils # (A) 0.03 X 10*3/uL (0.00-0.10); Basophils % (A) 0.2 %; Eosinophils # (A) 2.93 X 10*3/uL (0.04-0.35); Eosinophils % (A) 22.5 %; HCT 39.4 % (37.2-46.3); HGB 14.2 g/dL (12.0-15.0); Lymphocytes # (A) 2.36 X 10*3/uL (0.90-5.00); Lymphocytes % (A) 18.1 %; MCH 31.6 pg (27.0-32.0); MCV 87.6 FL (80.0-97.0); Mean Platelet Volume 9.2 FL (9.5-12.2); Monocytes # (A) 0.72 X 10*3/uL (0.20-1.00); Monocytes % (A) 5.5 %; NRBC Per 100 WBC 0 X 10*3/uL (0.00-0.01); Neutrophils # (A) 6.91 X 10*3/uL (1.80-7.70); Platelet Count 187 X 10*3/uL (140-440); RDW 13.3 % (11.5-14.5); WBC 13.04 X 10*3/uL (4.50-10.00)
[2023-10-22] MEDS: VENLAFAXINE HCL ER 75 MG CAP PO SCH (11:35)
[2023-10-22] MEDS: BISOPROLOL-HCTZ 10-6.25 MG 1 EACH TAB PO SCH (11:35)
--- NOTE | 2023-10-22 15:37 | P.GSCN ---
History of Present Illness Consult date: 10/22/23 Reason for Consult: RUQ abdominal pain History of present illness: Patient is a 48-year-old female with a past medical history of hypertension who presents with acute onset of right upper quadrant and diffuse abdominal pain. Patient states that she had been diagnosed with gastroenteritis earlier in September with nausea vomiting and diarrhea. She states that the day before admission she had acute onset of right upper quadrant pain. She said this was associated with nausea vomiting as well as diarrhea. She denies any melena hematochezia. No p rior episodes such as this. No fevers or chills. No shortness of breath or chest pain. She states that since admission her right upper quadrant pain is improved however she is having bilateral crampy lower abdominal pain. She was able to tolerate a regular diet without worsening of her pain. Ambulatory and voiding. Upon presentation to [facility] emergency department a CT abdomen pelvis was obtained showing evidence of cholelithiasis without pericholecystic fluid or wall thickening, as well as evidence mesenteric lymphadneopathy and small bowel dilation and fluid distention concerning for enteritis. Review of Systems Negative except for as stated above Past Medical History Past Medical History: Hypertension History of Any Multi-Drug Resistant Organisms: MRSA Year Discovered:: 04/12/21 MDRO Source:: THIGH MRSA Past Surgical History: Orthopedic Surgery Past Psychological History: Anxiety, Depression Smoking Status: Never smoker Past Alcohol Use History: None Reported Past Drug Use History: None Reported Medications and Allergies Home Medications Medication Instructions Recorded Confirmed Type Bisoprolol-Hctz 10-6.25 mg [Ziac 1 tab PO DAILY 04/12/21 10/21/23 History 10-6.25 MG] Venlafaxine HCl ER [Effexor Xr] 75 mg PO DAILY 10/21/23 10/21/23 History Allergies Allergy/AdvReac Type Severity Reaction Status Date / Time No Known Allergies Allergy Verified 10/21/23 09:44 Surgical - Exam Vital Signs Temp Pulse Resp BP Pulse Ox 98 F 79 18 139/89 98 10/21/23 08:28 10/21/23 08:28 10/21/23 08:28 10/21/23 08:28 10/21/23 08:28 - General Gen: AxO, NAD Pulm: non-labored respirations Abd: soft, tender in B/L LQ and RUQ. Rasmussen's sign negative. No guarding/rebound/rigidity Extrem: no edema seen Results - Labs 10/22/23 04:41 10/22/23 04:41 Abnormal Lab Results - Last 24 Hours (Table) 10/22/23 10/22/23 Range/Units 04:41 04:41 WBC 13.04 H (4.50-10.00) X 10*3/uL MPV 9.2 L (9.5-12.2) FL Immature Gran # 0.09 H (0.00-0.04) X 10*3/uL Eosinophils # 2.93 H (0.04-0.35) X 10*3/uL Potassium 3.0 L (3.5-5.5) mmol/L Chloride 112 H (96-109) mmol/L Carbon Dioxide 16.0 L (21.6-31.8) mmol/L Calcium 8.6 L (8.7-10.3) mg/dL Total Protein 6.0 L (6.2-8.2) g/dL Albumin 3.5 L (3.8-4.9) g/dL Albumin/Globulin Ratio 1.40 L (1.60-3.17) Ratio Diabetes panel 10/22/23 Range/Units 04:41 Sodium 140 (135-145) mmol/L Potassium 3.0 L (3.5-5.5) mmol/L Chloride 112 H (96-109) mmol/L Carbon Dioxide 16.0 L (21.6-31.8) mmol/L BUN 13.4 (9.0-27.0) mg/dL Creatinine 0.8 (0.6-1.5) mg/dL Glucose 88 (70-110) mg/dL Calcium 8.6 L (8.7-10.3) mg/dL AST 31 (13-35) U/L ALT 40 (8-44) U/L Alkaline Phosphatase 73 (41-126) U/L Total Protein 6.0 L (6.2-8.2) g/dL Albumin 3.5 L (3.8-4.9) g/dL Calcium panel 10/22/23 Range/Units 04:41 Calcium 8.6 L (8.7-10.3) mg/dL Albumin 3.5 L (3.8-4.9) g/dL Pituitary panel 10/22/23 Range/Units 04:41 Sodium 140 (135-145) mmol/L Potassium 3.0 L (3.5-5.5) mmol/L Chloride 112 H (96-109) mmol/L Carbon Dioxide 16.0 L (21.6-31.8) mmol/L BUN 13.4 (9.0-27.0) mg/dL Creatinine 0.8 (0.6-1.5) mg/dL Glucose 88 (70-110) mg/dL Calcium 8.6 L (8.7-10.3) mg/dL Adrenal panel 10/22/23 Range/Units 04:41 Sodium 140 (135-145) mmol/L Potassium 3.0 L (3.5-5.5) mmol/L Chloride 112 H (96-109) mmol/L Carbon Dioxide 16.0 L (21.6-31.8) mmol/L BUN 13.4 (9.0-27.0) mg/dL Creatinine 0.8 (0.6-1.5) mg/dL Glucose 88 (70-110) mg/dL Calcium 8.6 L (8.7-10.3) mg/dL Total Bilirubin 0.5 (0.3-1.2) mg/dL AST 31 (13-35) U/L ALT 40 (8-44) U/L Alkaline Phosphatase 73 (41-126) U/L Total Protein 6.0 L (6.2-8.2) g/dL Albumin 3.5 L (3.8-4.9) g/dL Assessment and Plan Assessment: Patient is a 48F who presents with abdominal pain, N/V/D and CT evidence of cholelithiasis without acute cholecystitis and enteritis Plan: -Diet as tolerated -IVF hydration -PRN pain and nausea control -IV abx for enteritis -DVT/GI PPx -No acute surgical intervention; patient counseled that she will require l aparoscopic cholecystectomy due to her symptomatic cholelithiasis but on a non- emergent basis given lack of findings concerning for acute cholecysitits. Patient also counseled that she will require outpatient colonoscopy given her evidence of enteritis and no prior colonoscopic evaluation. Chuy Henderson MD General Surgery
[2023-10-22] MEDS: ACETAMINOPHEN TAB 325 MG TAB PO PRN (17:27)
[2023-10-23] MEDS ORDERED: Potassium Replacement Protocol 1 EACH MISC MISCELLANE PRN (05:22)
--- NOTE | 2023-10-23 05:50 | P.PN ---
Subjective Progress Note Date: 10/22/23 The patient is a 48-year-old female with underlying history of hypertension who last month had gastroenteritis which resolved. The patient is now having worsening symptoms with diffuse abdominal pain in the right upper quadrant. CT scan shows significant diffuse colitis with fatty liver and element of gallstones. Will ask surgery to see the patient. No significant chest pain she seems to be tolerating diet at this point. No history family history of colitis or Crohn's disease. She is a non-smoker. We spent a long time discussing dietary modifications and lifestyle improvement to lose weight. 10/22/2023 Patient is seen in follow-up today and continues to report some abdominal discomfort with cramping although feels improved from admission. Surgery has evaluated the patient and diet is being advanced as tolerated recommending outpatient follow-up for possible cholecystectomy within the next 3 to 4 weeks. Prior to admission patient reports having 7 consecutive days of diarrhea and re ports her last episode was prior to admission. Potassium found to be 3.1 will replace per protocol and follow-up on repeat labs. Encouraged to increase activity as tolerated with possible discharge planning in the next 24 hours. Patient is maintained on Cipro from primary care provider Dr. Freitas. Review of systems: Constitutional: No reports of fatigue, fever, or chills Cardiovascular: No reports of chest pain or palpitations Respiratory: No reports of shortness of breath or cough GI: reports of occasional nausea, no vomiting, no further diarrhea : No reports of dysuria or retention Neurovascular: No reports of weakness or numbness All medications have been reviewed Physical exam: Gen: This is a 48-year-old female who is awake, alert and oriented x 3, well- developed, well-nourished, morbidly obese HEENT: Head is atraumatic, normocephalic. Pupils equal, round. Sclerae is anicteric. NECK: Supple. No JVD. No lymphadenopathy. No thyromegaly. LUNGS: Clear to auscultation. No wheezes or rhonchi. No intercostal retractions. HEART: S1, S2 are muffled ABDOMEN: Soft. Bowel sounds are present. No masses. Mildly tender on palpation. No guarding EXTREMITIES: No pedal edema. No calf tenderness. NEUROLOGICAL: Patient is awake, alert and oriented x3. Cranial nerves 2 through 12 are grossly intact. Assessment: Hypertension, uncontrolled Enteritis Hypokalemia likely secondary to multiple episodes of diarrhea and poor oral intake, will be replaced Leukocytosis, likely secondary to above Concerns for acute urinary tract infection, present on admission, ruled out, likely asymptomatic bacteriuria. Patient denies any symptoms of pain, burning, or frequency Gallstones with hepatic steatosis, patient to follow-up with surgery outpatient for possible cholecystectomy in the next 4 weeks Morbid obesity with a BMI 42.3 GI prophylaxis DVT prophylaxis Full code Plan: Patient was started on Cipro empirically with concerns of enteritis and will continue for now. Patient reports improvements and resolution of diarrhea. Advance diet as tolerated Acute urinary tract infection ruled out, likely asymptomatic bacteriuria as patient is denying any pain frequency or burning with urination General surgery recommending outpatient follow-up for possible cholecystectomy in the next 4 weeks Lifestyle and diet modifications discussed Encouraged to increase activity as tolerated Replace potassium per protocol and we will follow-up on repeat labs, potassium was 3.0 today Possible discharge planning in the next 24 hours The impression and plan of care has been dictated by Alisha Mcdonald, Nurse Practitioner as directed. Dr. Sussy MD I have performed a history and examination and MDM of this patient, discussed the same with the dictator, and agree with the dictator's assessment and plan as written ,documented as a scribe. Based on total visit time, I have performed more than 50% of the visit. Objective - Vital Signs Vital signs: Vital Signs Temp 97.6 F 10/22/23 07:00 Pulse 89 10/22/23 07:00 Resp 16 10/22/23 07:00 BP 147/69 10/22/23 07:00 Pulse Ox 97 10/22/23 07:00 FiO2 Intake & Output 10/21/23 10/22/23 10/22/23 18:59 06:59 18:59 Intake Total 118 Balance 118 Weight 104.78 kg 104.78 kg Intake: Oral 118 Other: Voiding Method Toilet # Voids 2 - Labs CBC & Chem 7: 10/22/23 04:41 10/22/23 04:41 Labs: Abnormal Lab Results - Last 24 Hours (Table) 10/21/23 10/21/23 10/21/23 Range/Units 08:45 09:04 09:04 Neutrophils # (Manual) 12.85 H (1.3-7.7) k/uL Eosinophils # (Manual) 2.29 H (0-0.7) k/uL Potassium 3.4 L (3.5-5.1) mmol/L Chloride 119 H (98-107) mmol/L Carbon Dioxide 12 L (22-30) mmol/L BUN 18 H (7-17) mg/dL Calcium (8.7-10.3) mg/dL AST 42 H (14-36) U/L ALT 42 H (4-34) U/L Total Protein (6.2-8.2) g/dL Albumin (3.8-4.9) g/dL Albumin/Globulin Ratio (1.60-3.17) Ratio Urine Appearance Turbid H (Clear) Urine Protein 1+ H (Negative) Urine Blood Small H (Negative) Ur Leukocyte Esterase Large H (Negative) Urine RBC >182 H (0-5) /hpf Urine WBC >182 H (0-5) /hpf Ur Squamous Epith Cells 10 H (0-4) /hpf Urine Bacteria Few H (None) /hpf Urine Mucus Occasional H (None) /hpf 10/22/23 Range/Units 04:41 Neutrophils # (Manual) (1.3-7.7) k/uL Eosinophils # (Manual) (0-0.7) k/uL Potassium 3.0 L (3.5-5.1) mmol/L Chloride 112 H (98-107) mmol/L Carbon Dioxide 16.0 L (22-30) mmol/L BUN (7-17) mg/dL Calcium 8.6 L (8.7-10.3) mg/dL AST (14-36) U/L ALT (4-34) U/L Total Protein 6.0 L (6.2-8.2) g/dL Albumin 3.5 L (3.8-4.9) g/dL Albumin/Globulin Ratio 1.40 L (1.60-3.17) Ratio Urine Appearance (Clear) Urine Protein (Negative) Urine Blood (Negative) Ur Leukocyte Esterase (Negative) Urine RBC (0-5) /hpf Urine WBC (0-5) /hpf Ur Squamous Epith Cells (0-4) /hpf Urine Bacteria (None) /hpf Urine Mucus (None) /hpf
[2023-10-23] MEDS: POTASSIUM CHLORIDE ER 20 MEQ TAB.ER PO SCH (06:24)
[2023-10-23 10:28] LABS: Basophils % (A) 0 %; Eosinophils # (A) 1.7 k/uL (0-0.7); Eosinophils % (A) 18 %; HCT 40.9 % (34.0-46.0); HGB 14.5 gm/dL (11.4-16.0); Lymphocytes # (A) 1.6 k/uL (1.0-4.8); Lymphocytes % (A) 17 %; MCH 31.7 pg (25.0-35.0); MCHC 35.4 g/dL (31.0-37.0); MCV 89.7 fL (80.0-100.0); Mean Platelet Volume 7.6; Monocytes # (A) 0.4 k/uL (0-1.0); Monocytes % (A) 5 %; Neutrophils # (A) 5.6 k/uL (1.3-7.7); Neutrophils % (A) 58 %; Platelet Count 181 k/uL (150-450); RBC 4.56 m/uL (3.80-5.40); RDW 13.5 % (11.5-15.5); WBC 9.6 k/uL (3.8-10.6)
[2023-10-23 10:34] LABS: ALT 42 U/L (4-34); AST 27 U/L (14-36); African American GFR (CKD) >90 (>60 ml/min/1.73 sqM); Albumin 3.5 g/dL (3.5-5.0); Albumin/Globulin Ratio 1.3; Alkaline Phosphatase 64 U/L (38-126); Anion Gap 5 mmol/L; Blood Urea Nitrogen 14 mg/dL (7-17); Carbon Dioxide 19 mmol/L (22-30); Chloride 116 mmol/L (98-107); Globulin 2.8 g/dL; Glucose 113 mg/dL (74-99); Magnesium 1.5 mg/dL (1.6-2.3); Non-African American GFR(CKD) >90 (>60 ml/min/1.73 sqM); Potassium 3.2 mmol/L (3.5-5.1); Sodium 140 mmol/L (137-145); Total Bilirubin 0.8 mg/dL (0.2-1.3); Total Protein 6.3 g/dL (6.3-8.2)
[2023-10-23] MEDS ORDERED: Magnesium Replacement Protocol 1 EACH MISC MISCELLANE PRN (11:36)
[2023-10-23] MEDS: MAGNESIUM SULFATE-D5W PMX 1 GM in DEXTROSE/WATER 1 100ML.BAG IVPB SCH (11:54)
--- NOTE | 2023-10-23 13:12 | P.PN ---
Subjective Progress Note Date: 10/23/23 patient states the diarrhea has improved slightly. She still has complaints of right upper quadrant pain. She is known to have hydropic gallbladder with cholelithiasis. On exam vital signs appear stable. Abdomen soft. It. Patient be scheduled for colonoscopy in the a.m. we will plan to deal with her gallbladder as an outpatient. Objective - Vital Signs Vital signs: Vital Signs Temp 98.8 F 10/23/23 07:00 Pulse 61 10/23/23 08:39 Resp 15 10/23/23 08:39 BP 167/79 10/23/23 07:00 Pulse Ox 97 10/23/23 07:00 FiO2 Intake & Output 10/22/23 10/23/23 10/23/23 18:59 06:59 18:59 Intake Total 118 Balance 118 Intake: Oral 118 Other: Voiding Method Toilet Toilet Toilet # Voids 3 2 # Bowel Movements 1 - Labs CBC & Chem 7: 10/23/23 10:05 10/23/23 10:05 Labs: Abnormal Lab Results - Last 24 Hours (Table) 10/23/23 10/23/23 Range/Units 10:05 10:05 Eosinophils # 1.7 H (0-0.7) k/uL Potassium 3.2 L (3.5-5.1) mmol/L Chloride 116 H (98-107) mmol/L Carbon Dioxide 19 L (22-30) mmol/L Glucose 113 H (74-99) mg/dL Magnesium 1.5 L (1.6-2.3) mg/dL ALT 42 H (4-34) U/L Microbiology - Last 24 Hours (Table) 10/21/23 08:45 Urine Culture - Final Urine,Voided 10/21/23 14:30 Blood Culture - Preliminary Blood 10/21/23 14:15 Blood Culture - Preliminary Blood
[2023-10-23] MEDS: PEG 3350 (236 GM/BTL) + LYTES 4,000 ML BOTTLE PO ONE (14:40)
--- NOTE | 2023-10-23 21:33 | P.PN ---
Subjective Progress Note Date: 10/23/23 The patient is a 48-year-old female with underlying history of hypertension who last month had gastroenteritis which resolved. The patient is now having worsening symptoms with diffuse abdominal pain in the right upper quadrant. CT scan shows significant diffuse colitis with fatty liver and element of ga llstones. Will ask surgery to see the patient. No significant chest pain she seems to be tolerating diet at this point. No history family history of colitis or Crohn's disease. She is a non-smoker. We spent a long time discussing dietary modifications and lifestyle improvement to lose weight. 10/22/2023 Patient is seen in follow-up today and continues to report some abdominal discomfort with cramping although feels improved from admission. Surgery has evaluated the patient and diet is being advanced as tolerated recommending outpatient follow-up for possible cholecystectomy within the next 3 to 4 weeks. Prior to admission patient reports having 7 consecutive days of diarrhea and reports her last episode was prior to admission. Potassium found to be 3.1 will replace per protocol and follow-up on repeat labs. Encouraged to increase activity as tolerated with possible discharge planning in the next 24 hours. Patient is maintained on Cipro from primary care provider Dr. Freitas. 10/23/2023 Patient is evaluated in follow up today. Reports 3 episodes of diarrhea overnight and 1 this morning. Having continued abdominal discomfort. Cipro will be stopped could be contributing to her continued diarrhea. White blood cell count has normalized to 9.6. Potassium 3.2, BUN 14, creatinine 0.79. Magnesium 1.5. C.Dif negative x 2. Review of systems: Constitutional: No reports of fatigue, fever, or chills Cardiovascular: No reports of chest pain or palpitations Respiratory: No reports of shortness of breath or cough GI: reports of occasional nausea, no vomiting, no further diarrhea : No reports of dysuria or retention Neurovascular: No reports of weakness or numbness All medications have been reviewed Physical exam: Gen: This is a 48-year-old female who is awake, alert and oriented x 3, well- developed, well-nourished, morbidly obese HEENT: Head is atraumatic, normocephalic. Pupils equal, round. Sclerae is anicteric. NECK: Supple. No JVD. No lymphadenopathy. No thyromegaly. LUNGS: Clear to auscultation. No wheezes or rhonchi. No intercostal retractions. HEART: S1, S2 are muffled ABDOMEN: Soft. Bowel sounds are present. No masses. Mildly tender on palpation. No guarding EXTREMITIES: No pedal edema. No calf tenderness. NEUROLOGICAL: Patient is awake, alert and oriented x3. Cranial nerves 2 through 12 are grossly intact. Assessment: Hypertension, uncontrolled Enteritis Hypokalemia likely secondary to multiple episodes of diarrhea and poor oral intake, will be replaced Leukocytosis, likely secondary to above Concerns for acute urinary tract infection, present on admission, ruled out, likely asymptomatic bacteriuria. Patient denies any symptoms of pain, burning, or frequency Gallstones with hepatic steatosis, patient to follow-up with surgery outpatient for possible cholecystectomy in the next 4 weeks Morbid obesity with a BMI 42.3 GI prophylaxis DVT prophylaxis Full code Plan: Stop cipro. Patient will be going for colonoscopy tomorrow due to continued diarrhea. Acute urinary tract infection ruled out, likely asymptomatic bacteriuria as pat ient is denying any pain frequency or burning with urination General surgery recommending outpatient follow-up for possible cholecystectomy in the next 4 weeks Lifestyle and diet modifications discussed Encouraged to increase activity as tolerated Replace potassium per protocol and we will follow-up on repeat labs, potassium was 3.2 today. The impression and plan of care has been dictated by Carmella Curtis, Nurse Practitioner as directed. Dr. Sussy MD I have performed a history and physical examination and medical decision making of this patient, discussed the same with the dictator, and agree with the dictators assessment and plan as written, documented as a scribe. Based on total visit time, I have performed more than 50% of this visit. Objective - Vital Signs Vital signs: Vital Signs Temp 98.6 F 10/23/23 14:26 Pulse 66 10/23/23 14:26 Resp 15 10/23/23 14:26 BP 178/94 10/23/23 14:26 Pulse Ox 96 10/23/23 14:26 FiO2 Intake & Output 10/23/23 10/23/23 10/24/23 06:59 18:59 06:59 Other: Voiding Method Toilet Toilet # Voids 2 1 # Bowel Movements 1 - Labs CBC & Chem 7: 10/23/23 10:05 10/23/23 10:05 Labs: Abnormal Lab Results - Last 24 Hours (Table) 10/23/23 10/23/23 Range/Units 10:05 10:05 Eosinophils # 1.7 H (0-0.7) k/uL Potassium 3.2 L (3.5-5.1) mmol/L Chloride 116 H (98-107) mmol/L Carbon Dioxide 19 L (22-30) mmol/L Glucose 113 H (74-99) mg/dL Magnesium 1.5 L (1.6-2.3) mg/dL ALT 42 H (4-34) U/L Microbiology - Last 24 Hours (Table) 10/21/23 14:30 Blood Culture - Preliminary Blood 10/21/23 14:15 Blood Culture - Preliminary Blood 10/21/23 08:45 Urine Culture - Final Urine,Voided Assessment and Plan Time with Patient: Less than 30
--- NOTE | 2023-10-24 08:18 | P.PN ---
Subjective Progress Note Date: 10/24/23 This is a 48-year-old female who presented to the emergency department with worsening abdominal pain and right upper quadrant pain. Patient also reporting diarrhea. CT scan showed significant diffuse colitis with fatty liver and element of gallstones. Patient seen and evaluated by general surgeon who is recommending colonoscopy today. Patient is seen this morning lying comfortably in bed. She reports pain is improved and she is feeling slightly better. Vitals are stable. She was tolerating diet yesterday, and is currently n.p.o. for colonoscopy today. Objective - Vital Signs Vital signs: Vital Signs Temp 98.8 F 10/24/23 07:00 Pulse 70 10/24/23 07:00 Resp 15 10/24/23 07:00 BP 149/75 10/24/23 07:00 Pulse Ox 98 10/24/23 07:00 FiO2 Intake & Output 10/23/23 10/24/23 10/24/23 18:59 06:59 18:59 Other: Voiding Method Toilet Toilet # Voids 1 2 # Bowel Movements 1 - Constitutional General appearance: Present: cooperative, no acute distress - EENT Eyes: Present: PERRLA - Neck Neck: Present: normal ROM. Absent: lymphadenopathy, rigidity - Respiratory Respiratory: bilateral: CTA - Cardiovascular Rhythm: regular Heart sounds: normal: S1, S2 - Gastrointestinal General gastrointestinal: Present: soft. Absent: tenderness - Integumentary Integumentary: Present: normal, normal turgor - Psychiatric Psychiatric: Present: A&O x's 3, appropriate affect, intact judgment & insight - Labs CBC & Chem 7: 10/23/23 10:05 10/23/23 10:05 Labs: Abnormal Lab Results - Last 24 Hours (Table) 10/23/23 10/23/23 Range/Units 10:05 10:05 Eosinophils # 1.7 H (0-0.7) k/uL Potassium 3.2 L (3.5-5.1) mmol/L Chloride 116 H (98-107) mmol/L Carbon Dioxide 19 L (22-30) mmol/L Glucose 113 H (74-99) mg/dL Magnesium 1.5 L (1.6-2.3) mg/dL ALT 42 H (4-34) U/L Microbiology - Last 24 Hours (Table) 10/21/23 14:30 Blood Culture - Preliminary Blood 10/21/23 14:15 Blood Culture - Preliminary Blood 10/21/23 08:45 Urine Culture - Final Urine,Voided Assessment and Plan (1) Accelerated hypertension Current Visit: Yes Status: Acute Code(s): I10 - ESSENTIAL (PRIMARY) HYPERTENSION SNOMED Code(s): 55075151 (2) Enteritis Current Visit: Yes Status: Acute Code(s): K52.9 - NONINFECTIVE GASTROENTERITIS AND COLITIS, UNSPECIFIED SNOMED Code(s): 75135197 (3) Leukocytosis Current Visit: Yes Status: Acute Code(s): D72.829 - ELEVATED WHITE BLOOD CELL COUNT, UNSPECIFIED SNOMED Code(s): 890664139 Plan: Recheck potassium level Discharge after colonoscopy Patient seen and evaluated by nurse practitioner, physician in agreement with plan
[2023-10-24] MEDS ORDERED: PROPOFOL 10 MG/ML 20 ML VIAL IV ONE (16:05)
--- NOTE | 2023-10-24 16:34 | P.OP ---
Date of Procedure: 10/24/23 Preoperative Diagnosis: diarrhea Postoperative Diagnosis: normal colon Random rectal biopsy Procedure(s) Performed: colonoscopy Anesthesia: MAC Surgeon: Eze Traylor Pathology: other (rectum) Condition: stable Disposition: PACU Description of Procedure: the patient's placed on the endoscopy table in the lateral position. She received IV sedation. Digital rectal exam was performed. This revealed no abnormalities. The flexible colonoscope was then placed patient anus and passed throughout the entire colon. The ileocecal valve was visually is. The cecum, ascending and transverse colon appeared normal. The descending and sigmoid colon appeared normal. Scope brought back the rectum this appeared normal. Due to the patient's symptoms of diarrhea a random rectal biopsies performed. The scope was withdrawn from the anus.
[2023-10-25 02:32] VITALS: PULSE 63
[2023-10-25 07:34] VITALS: BP 147/88; RESP 16; TEMP 97.8
--- NOTE | 2023-10-25 08:31 | P.DS ---
Providers Date of admission: 10/21/23 12:01 Attending physician: Reg Freitas Consults: 10/21/23 16:50 Consult Physician Routine Consulting Provider: Eze Traylor Consult Reason/Comments: colitis Do you want consulting provider notified?: Yes Primary care physician: Reg Freitas - Discharge Diagnosis(es) (1) Accelerated hypertension Current Visit: Yes Status: Acute (2) Enteritis Current Visit: Yes Status: Acute (3) Leukocytosis Current Visit: Yes Status: Acute Hospital Course: This is a 48-year-old female who originally presented to the emergency department with complaints of worsening abdominal pain and diarrhea. CT scan showed significant diffuse colitis with fatty liver and elements of gallstones. Patient had a colonoscopy yesterday which was normal. Dr. Traylor is planning to follow-up on gallstones as an outpatient. Patient is seen this morning sitting up in bed resting comfortably. She is tolerating diet. She is anxious to go home. Patient will be discharged home today and follow-up in our office in 1 week. Patient seen and evaluated by nurse practitioner, physician in agreement with plan Patient Condition at Discharge: Stable Plan - Discharge Summary Discharge Rx Participant: No New Discharge Prescriptions: Continue Bisoprolol-Hctz 10-6.25 mg [Ziac 10-6.25 MG] 1 tab PO DAILY Venlafaxine HCl ER [Effexor XR] 75 mg PO DAILY Discharge Medication List Bisoprolol-Hctz 10-6.25 mg [Ziac 10-6.25 MG] 1 tab PO DAILY 04/12/21 [History] Venlafaxine HCl ER [Effexor XR] 75 mg PO DAILY 10/21/23 [History] Follow up Appointment(s)/Referral(s): Reg Freitas MD [Primary Care Provider] - 1 Week Eze Traylor MD [STAFF PHYSICIAN] - 1 Week Discharge Disposition: HOME SELF-CARE
== END 2023-10-25 10:10 | disposition home or self-care (01) ==
LOC: EC 08:15 → 6NMEDSUR 12:01
PROVIDERS: ADMIT Family Medicine; ATTEND Family Medicine
DX: K52.9 Noninfective gastroenteritis and colitis, unspecified (principal); K80.20 Calculus of gallbladder without cholecystitis without obstruction; E87.6 Hypokalemia; K82.1 Hydrops of gallbladder; I10 Essential (primary) hypertension; K76.0 Fatty (change of) liver, not elsewhere classified; D72.829 Elevated white blood cell count, unspecified; E66.01 Morbid (severe) obesity due to excess calories; Z68.41 Body mass index [BMI] 40.0-44.9, adult; Z79.899 Other long term (current) drug therapy
CPT/HCPCS: 96365; 96366; 96361; 96375; 99285; 36415; 88305; 80053 ×3; 82150; 83605; 83690; 83735 ×2; 84132; 85025 ×3; 81001; 84703; 87040; 87324 ×2; 87086; 74177; 45380; G0378 ×5; J0360; J0696; J3475; J2704; Q9967

== ENCOUNTER → 2023-11-10 | Outpatient (CLI) | payer BC ==
--- NOTE | 2023-11-10 13:59 | US ---
EXAMINATION TYPE: US gallbladder DATE OF EXAM: 11/10/2023 COMPARISON: NONE CLINICAL INDICATION: Female, 48 years old with history of R10.11 RIGHT UPPER QUADRANT PAIN; Diarrhea. abdominal pain for 3 weeks TECHNIQUE: Multiple sonographic images of the right upper quadrant are obtained. FINDINGS: EXAM MEASUREMENTS: Liver Length: 17.2cm Gallbladder Wall: 0.3 cm CBD: 0.3 cm Right Kidney: 9.0 x 4.3 x 4.4 cm [employer] NOTES:*Limitations due to large amount of overlying bowel gas Pancreas: Obscured by bowel gas Liver: attenuating Gallbladder: stones Evidence for sonographic Rasmussen's sign: no CBD: limited evaluation Right Kidney: no evidence of hydronephrosis IMPRESSION: 1. Gallstones. Sonographic Rasmussen sign is negative. There is no biliary ductal dilatation. 2. Mild fatty liver and mild hepatomegaly. 3. Pancreas obscured by bowel gas
== END | disposition home or self-care (01) ==
LOC: RADUSWWP 08:02
PROVIDERS: ATTEND Surgery
DX: K80.20 Calculus of gallbladder without cholecystitis without obstruction (principal); K76.0 Fatty (change of) liver, not elsewhere classified; R14.3 Flatulence
CPT/HCPCS: 76705

== ENCOUNTER 2023-11-17 09:56 | Day surgery (SDC) | payer BC ==
[2023-11-17] MEDS ORDERED: LIDOCAINE 1% (10MG/ML) FOR IV START INTRADERMA PRN (09:59)
[2023-11-17 10:15] VITALS: TEMP 97.1
[2023-11-17] MEDS: LACTATED RINGERS 1,000 ML IV SCH (10:22)
[2023-11-17] MEDS: IV FLUID CONTINUATION 1,000 ML IV ONE (10:23)
[2023-11-17] MEDS ORDERED: PROPOFOL 10 MG/ML 20 ML VIAL IV ONE (10:41)
[2023-11-17] MEDS ORDERED: LIDOCAINE 1% INJ 10MG/ML (20 ML MDV) ONE (10:41)
--- NOTE | 2023-11-17 10:56 | P.OP ---
Date of Procedure: 11/17/23 Preoperative Diagnosis: GERD Postoperative Diagnosis: antral gastritis Procedure(s) Performed: EGD Anesthesia: MAC Surgeon: Eze Traylor Pathology: other (antrum) Condition: stable Disposition: PACU Description of Procedure: the patient's placed on the endoscopy table in the lateral position. She rece ived IV sedation. The gastro-/oropharynx passed in the esophagus and into the stomach. Scope was placed through the pylorus. The first and second portion of the duodenum appeared normal. Scope was then brought back the antrum this. Mildly inflamed. A biopsies performed. The scope was then retroflexed and the remainder the stomach appeared normal. The GE junction was at 40 cm per the distal esophagus appeared normal. The proximal esophagus appeared normal. Scope withdrawn for patient.
[2023-11-17 10:58] VITALS: RESP 18
[2023-11-17 11:12] VITALS: PULSE 64
[2023-11-17 11:16] VITALS: BP 155/93
== END 2023-11-17 11:34 | disposition home or self-care (01) ==
LOC: ORWHC2ENDO 09:56
PROVIDERS: ATTEND Surgery
DX: K29.50 Unspecified chronic gastritis without bleeding (principal); K21.9 Gastro-esophageal reflux disease without esophagitis; I10 Essential (primary) hypertension; E78.5 Hyperlipidemia, unspecified; E66.01 Morbid (severe) obesity due to excess calories; F41.9 Anxiety disorder, unspecified; F32.A Depression, unspecified; Z79.899 Other long term (current) drug therapy; Z90.49 Acquired absence of other specified parts of digestive tract; Z68.41 Body mass index [BMI] 40.0-44.9, adult
CPT/HCPCS: 81025; 88305; 88342; 43239; J2001; J2704

== ENCOUNTER 2023-12-09 07:04 | Day surgery (SDC) | payer BC ==
[2023-12-07 17:40] VITALS: BMI 43.9
[2023-12-09] MEDS: IV FLUID CONTINUATION 1,000 ML IV ONE (07:11)
[2023-12-09] MEDS ORDERED: HYDROmorphone 0.5 MG/0.5 ML SYRINGE IVP PRN (07:14)
[2023-12-09] MEDS ORDERED: MIDAZOLAM 2 MG/2 ML VIAL IV PRN (07:14)
[2023-12-09] MEDS ORDERED: LIDOCAINE 1% (10MG/ML) FOR IV START INTRADERMA PRN (07:14)
[2023-12-09] MEDS ORDERED: LACTATED RINGERS 1,000 ML IV SCH (07:14)
[2023-12-09] MEDS ORDERED: fentaNYL (PF) 50 MCG/ML 2 ML AMP IVP PRN (07:14)
[2023-12-09] MEDS: DEXAMETHASONE SOD PHOSPHATE 4 MG/ML 1 ML VIAL IV ONE (07:56)
[2023-12-09] MEDS: HEPARIN SODIUM,PORCINE 5,000 UNIT/ML 1 ML VIAL SQ PRN (07:56)
[2023-12-09] MEDS: ONDANSETRON 4 MG/2 ML VIAL IVP ONE (07:57)
[2023-12-09] MEDS: ACETAMINOPHEN TAB 500 MG TAB PO PRN (07:59)
[2023-12-09] MEDS: diphenhydrAMINE 50 MG/ML 1 ML VIAL IVP STA (08:00)
[2023-12-09] MEDS: FAMOTIDINE 20 MG/2 ML VIAL IV STA (08:00)
[2023-12-09] MEDS ORDERED: KETOROLAC 30 MG/ML 1 ML VIAL ONE (08:36)
[2023-12-09] MEDS ORDERED: fentaNYL (PF) 50 MCG/ML 2 ML AMP ONE (08:36)
[2023-12-09] MEDS ORDERED: ROCURONIUM 10 MG/ML (5 ML VIAL) IV ONE (08:36)
[2023-12-09] MEDS ORDERED: LIDOCAINE 1% INJ 10MG/ML (20 ML MDV) ONE (08:36)
[2023-12-09] MEDS ORDERED: PROPOFOL 10 MG/ML 20 ML VIAL IV ONE (08:36)
[2023-12-09] MEDS ORDERED: MIDAZOLAM 2 MG/2 ML VIAL ONE (08:36)
[2023-12-09] MEDS: LIDOCAINE 1%-EPI 1:100,000 20 ML VIAL SQ ONE (08:56)
--- NOTE | 2023-12-09 09:24 | P.OP ---
Date of Procedure: 12/09/23 Preoperative Diagnosis: cholecystitis Postoperative Diagnosis: cholecystitis Cholelithiasis Procedure(s) Performed: laparoscopic cholecystectomy Anesthesia: SCOTT Surgeon: Eze Traylor Estimated Blood Loss (ml): 5 Pathology: other (gallbladder) Condition: stable Disposition: PACU Description of Procedure: The patient was placed on the operating table. The patient received a general endotracheal tube anesthesia. The patients abdomen was prepped and draped in the usual sterile fashion. Through an infraumbilical stab incision, the fascia of the anterior abdominal wall was grasped with a pair of Kochers and then the Veress needle was placed in the peritoneal cavity. Position of the Veress needle was confirmed with positive drop test. The abdomen was then insufflated. After adequate insufflation, the 10 mm trocar was placed in the peritoneal cavity. Following this the laparoscope was placed in the peritoneal cavity. The patient was placed in the head-up, right side up position and then a 5 mm trocar was placed in the right lateral and right subcostal position under direct visualization. A 8 mm trocar was placed in the epigastric position. The gallbladder was grasped in the fundus and infundibulum. Traction on the gallbladder was placed in the lateral and the cephalad positions. The triangle of Calot was visualized.. The cystic duct was bluntly dissected until the union of the cystic duct and common bile duct was seen. A critical view of safety was achieved. The cystic duct was then divided and sealed with the Harmonic scissors. A PDS Endoloop was then placed throughout the cystic duct stump. The cystic artery divided and sealed with the Harmonic scissors. The gallbladder was then removed from the liver bed using Harmonic scissors. The gallbladder was then extracted through the epigastric port site. Operative field was checked for any bleeding spots and Harmonic scissors was used to coagulate the liver bed. The abdomen was irrigated. The trocars were removed. The skin was closed using interrupted 3-0 Vicryl suture. Dermabond dressing were applied. The patient tolerated the procedure well.
[2023-12-09 09:34] VITALS: TEMP 97
[2023-12-09 10:18] VITALS: RESP 16
[2023-12-09 10:33] VITALS: BP 147/88; PULSE 79
== END 2023-12-09 11:01 | disposition home or self-care (01) ==
LOC: OR 07:04
PROVIDERS: ATTEND Surgery
DX: I10 Essential (primary) hypertension (principal); F32.A Depression, unspecified; K21.9 Gastro-esophageal reflux disease without esophagitis; F41.9 Anxiety disorder, unspecified; Z79.899 Other long term (current) drug therapy
CPT/HCPCS: 81025; 88304; 84132; 47562; J2250; J1200; J1644; J1100; J0690; J2405; J2001; J3010; J1885; J3490; J2704